=== PATIENT | female | born 1975 | race Caucasian/White ===

== ENCOUNTER 2017-01-29 10:10 | Day surgery (SDC) | payer OTHER ==
[2017-01-26 15:34] VITALS: BMI 25.2
--- NOTE | 2017-01-29 06:14 | HP ---
CHIEF COMPLAINT: Fluid in the right ear. HISTORY OF PRESENT ILLNESS: This patient is a 41-year-old female who was recently seen in my office complaining of having a plugged sensation in her right ear. Her symptoms have been going on since October of 2016. She has been on several courses of oral antibiotics and steroids without any improvement. At the time that the patient was seen in my office, clinical examination of the right ear revealed chronic right serous otitis media. The patient was placed on a course of Decadron dose pack and was seen back in the office approximately 2 weeks later. At that time, it was noted that there was no significant improvement in the ear and therefore it was recommended that the patient undergo a right myringotomy with insertion of a ventilation tube under either IV sedation with MAC or general anesthesia. Past medical history reveals the patient has no known allergies to medications. Her current medications include control pills and Ambien, zolpidem. Patient does not have a history of asthma or diabetes mellitus. Previous surgeries include removal of vocal cord polyps, tonsillectomy, adenoidectomy, colonoscopy. There is no history of hypertension either. Review of systems is essentially unremarkable. PHYSICAL EXAMINATION: This patient is a 41-year-old female who is alert and cooperative. HEENT EXAMINATION: The patient is normocephalic. Tympanic membrane on the left side is normal. Middle ear space is free of any fluid or infection. Examination of the patient's right ear reveals the tympanic membrane is dull with a definite evidence of fluid in the right middle ear space. Pupils are equal, round and react to light and accommodation. Extraocular movements within normal limits. Intranasal examination reveals moderate to severe septal deviation with compensatory hypertrophy of the inferior turbinates and a moderate amount of mucus on the mucous membranes and draining down the posterior pharynx. Cranial nerves 2 through 12 and the remainder of the head and neck exam are all within normal limits. CHEST/CARDIOVASCULAR: Both lung willard are clear to percussion and auscultation. There is no evidence of any murmurs, S3s or S4s. Peripheral pulses are bilaterally symmetrical. ABDOMEN: There is no evidence of any masses, megaly or tenderness. The abdomen is soft. Skin is unremarkable. Musculoskeletal and neurological are within normal limits. PELVIC/RECTAL EXAM: The pelvic rectal exam is deferred at this time because the patient has this done on a regular basis at her family physician's office. The remainder of the physical exam is essentially within normal limits. IMPRESSION: Chronic right serous otitis media. PLAN: The patient is scheduled to undergo a right myringotomy with insertion of a ventilation tube under either IV sedation with MAC or general anesthesia depending upon the anesthesia department's preference. ATTENTION RNS IN THE PRESURGICAL AREA: I have not ordered any presurgical prophylactic antibiotics for this patient. If the pharmacy department sends any presurgical prophylactic antibiotics to the presurgical area for this patient that order should be canceled and the medication returned to pharmacy department and make sure that the patient's account is credited appropriately please. I have discussed the risks, benefits and alternative therapies for the above- mentioned procedure and for both sedation/analgesia as well as necessary blood product administration, if indicated, as they pertain to this patient. The patient has indicated his or her understanding and acceptance of the risks and procedures discussed. MONIE
[~2017-01-29 10:10] MED LIST: HYDROmorphone 1 MG/ML 1 ML SYRINGE IVP PRN; LACTATED RINGERS 1,000 ML IV SCH; LIDOCAINE 1% 20 ML VIAL (10MG/ML) FOR IV START INTRADERMA PRN; ONDANSETRON 4 MG/2 ML VIAL IVP PRN
[2017-01-29] MEDS ORDERED: LACTATED RINGERS 1,000 ML IV ONE (11:00)
[2017-01-29] MEDS ORDERED: DEXAMETHASONE SOD PHOS (MDV) 100 MG/10 ML VIAL IVP ONE (11:16)
[2017-01-29] MEDS ORDERED: MIDAZOLAM 2 MG/2 ML VIAL ONE (11:42)
[2017-01-29] MEDS ORDERED: LIDOCAINE 1% INJ 10MG/ML (20 ML MDV) ONE (11:42)
[2017-01-29] MEDS ORDERED: fentaNYL (PF) 50 MCG/ML 2 ML AMP ONE (11:42)
[2017-01-29] MEDS ORDERED: PROPOFOL 10 MG/ML 20 ML VIAL IV ONE (11:42)
[2017-01-29] MEDS ORDERED: CIPROFLOXACIN-DEXAMETH 0.3-0.1% DROPS 7.5 ML BTL BOTH EARS ONE (11:53)
[2017-01-29 12:12] VITALS: TEMP 98.4
[2017-01-29 13:00] VITALS: PULSE 47
[2017-01-29 13:24] VITALS: BP 11/71; RESP 20
--- NOTE | 2017-01-29 18:37 | OP ---
DATE OF SURGERY: 01/19/2017 PREOPERATIVE DIAGNOSIS: Chronic right serous otitis media. POSTOPERATIVE DIAGNOSIS: Chronic right serous otitis media. ANESTHESIA: General. OPERATIVE PROCEDURE: Right myringotomy with insertion of a Aurora titanium ventilation tube. OPERATING SURGEON: Dr. Espinoza. COMPLICATIONS: None. OPERATIVE PROCEDURE: The patient was placed on the operating table in supine position. After uneventful induction and LMA intubation, satisfactory general anesthesia was attained. Next the patient's right ear was draped in the usual and customary fashion. Following this, using the Zeiss operating microscope and a #3 aural speculum, the right external auditory canal was cleansed of all wax and debris. The right tympanic membrane was inspected and appeared to be dull with fluid in the right middle ear space. Therefore, using the myringotomy knife , an incision was made in the anterior/inferior quadrant of the right tympanic membrane. The right middle ear space was suctioned free of all fluid. Next a Aurora titanium ventilation tube was inserted through the previously made myringotomy incision which had been made in the anterior/inferior quadrant of the right tympanic membrane with the myringotomy knife. At this point the procedure was terminated. There were no intraoperative complications. The patient tolerated the procedure well and was returned to the recovery room in satisfactory condition. MONIE
== END 2017-01-29 13:26 | disposition home or self-care (01) ==
LOC: OR 10:10
PROVIDERS: ATTEND Otolaryngology
DX: H65.21 Chronic serous otitis media, right ear (principal); Z79.3 Long term (current) use of hormonal contraceptives; Z79.899 Other long term (current) drug therapy
CPT/HCPCS: 81025; 69436; J2250; J2405; J2001; J3010; J1100; J2704

== ENCOUNTER → 2017-03-23 | Outpatient (CLI) | payer OTHER ==
--- NOTE | 2017-03-24 06:57 | MM ---
Reason for exam: screening (asymptomatic). Baseline mammogram. History: Patient is nulliparous. Family history of breast cancer in maternal grandmother at age 70. Taking hormonal contraceptives for 24 years beginning at age 17. Physical Findings: Nurse did not find any significant physical abnormalities on exam. MG 3D Screening Mammo W/Cad Bilateral CC and MLO view(s) were taken. The breast tissue is extremely dense which could obscure a lesion on mammography. There is no discrete abnormality. There are scattered rounded densities bilaterally. These results were verbally communicated with the patient and result sheet given to the patient on 03/23/17. ASSESSMENT: Benign, BI-RAD 2 RECOMMENDATION: Routine screening mammogram of both breasts in 1 year.
== END | disposition home or self-care (01) ==
LOC: RADMAMWWP 15:28
PROVIDERS: ATTEND Obstetrics & Gynecology
DX: Z12.31 Encounter for screening mammogram for malignant neoplasm of breast (principal)
CPT/HCPCS: 77063; G0202

== ENCOUNTER → 2018-03-28 | Outpatient (CLI) | payer BC ==
--- NOTE | 2018-03-29 13:59 | MM ---
Reason for exam: screening (asymptomatic). Last mammogram was performed 1 year ago. History: Patient is nulliparous. Family history of breast cancer in maternal grandmother at age 70. Took hormonal contraceptives for 24 years beginning at age 17. Physical Findings: A clinical breast exam by your physician is recommended on an annual basis and results should be correlated with mammographic findings. MG Screening Mammo w CAD Bilateral CC and MLO view(s) were taken. Prior study comparison: March 23, 2017, bilateral MG 3d screening mammo w/cad. The breast tissue is heterogeneously dense. This may lower the sensitivity of mammography. No significant changes when compared with prior studies. ASSESSMENT: Benign, BI-RAD 2 RECOMMENDATION: Routine screening mammogram of both breasts in 1 year.
== END | disposition home or self-care (01) ==
LOC: RADMAMWWP 14:54
PROVIDERS: ATTEND Obstetrics & Gynecology
DX: Z12.31 Encounter for screening mammogram for malignant neoplasm of breast (principal); Z80.3 Family history of malignant neoplasm of breast
CPT/HCPCS: 77067

== ENCOUNTER → 2019-05-03 | Outpatient (CLI) | payer BC ==
--- NOTE | 2019-05-05 11:53 | MM ---
Reason for exam: screening (asymptomatic). Last mammogram was performed 1 year and 1 month ago. History: Patient is nulliparous. Family history of breast cancer in maternal grandmother at age 70. Took hormonal contraceptives for 24 years beginning at age 17. Physical Findings: A clinical breast exam by your physician is recommended on an annual basis and results should be correlated with mammographic findings. MG Screening Mammo w CAD Bilateral CC and MLO view(s) were taken. Prior study comparison: March 28, 2018, bilateral MG screening mammo w CAD. March 23, 2017, bilateral MG 3d screening mammo w/cad. The breast tissue is heterogeneously dense. This may lower the sensitivity of mammography. There is no discrete abnormality. No significant changes when compared with prior studies. ASSESSMENT: Benign, BI-RAD 2 RECOMMENDATION: Routine screening mammogram of both breasts in 1 year.
== END | disposition home or self-care (01) ==
LOC: RADMAMWWP 07:21
PROVIDERS: ATTEND Obstetrics & Gynecology
DX: Z80.3 Family history of malignant neoplasm of breast (principal)
CPT/HCPCS: 77067

== ENCOUNTER → 2020-08-06 | Outpatient (CLI) | payer BC ==
--- NOTE | 2020-08-09 12:16 | MM ---
Reason for exam: screening (asymptomatic). Last mammogram was performed 1 year and 3 months ago. History: Patient is nulliparous. Family history of breast cancer in maternal grandmother at age 70. Took hormonal contraceptives for 24 years beginning at age 17. Taking progesterone beginning at age 41. Physical Findings: A clinical breast exam by your physician is recommended on an annual basis and results should be correlated with mammographic findings. MG Screening Mammo w CAD Bilateral CC and MLO view(s) were taken. Prior study comparison: May 03, 2019, bilateral MG screening mammo w CAD. March 28, 2018, bilateral MG screening mammo w CAD. The breast tissue is heterogeneously dense. This may lower the sensitivity of mammography. There is chronic nodularity bilaterally. There is no discrete abnormality. ASSESSMENT: Benign, BI-RAD 2 RECOMMENDATION: Routine screening mammogram of both breasts in 1 year.
== END | disposition home or self-care (01) ==
LOC: RADMAMWWP 08:03
PROVIDERS: ATTEND Obstetrics & Gynecology
DX: Z12.31 Encounter for screening mammogram for malignant neoplasm of breast (principal)
CPT/HCPCS: 77067

== ENCOUNTER → 2021-08-14 | Outpatient (CLI) | payer BC ==
--- NOTE | 2021-08-15 14:32 | MM ---
Reason for exam: screening (asymptomatic). Last mammogram was performed 1 year ago. History: Patient is nulliparous. Family history of breast cancer in maternal grandmother at age 70. Took hormonal contraceptives for 24 years beginning at age 17. Taking progesterone beginning at age 41. Physical Findings: A clinical breast exam by your physician is recommended on an annual basis and results should be correlated with mammographic findings. MG Screening Mammo w CAD Bilateral CC and MLO view(s) were taken. Prior study comparison: August 06, 2020, bilateral MG screening mammo w CAD. May 03, 2019, bilateral MG screening mammo w CAD. The breast tissue is heterogeneously dense. This may lower the sensitivity of mammography. There is no discrete abnormality. No significant changes when compared with prior studies. ASSESSMENT: Negative, BI-RAD 1 RECOMMENDATION: Routine screening mammogram of both breasts in 1 year.
== END | disposition home or self-care (01) ==
LOC: RADMAMWWP 08:23
PROVIDERS: ATTEND Obstetrics & Gynecology
DX: Z12.31 Encounter for screening mammogram for malignant neoplasm of breast (principal); Z80.3 Family history of malignant neoplasm of breast
CPT/HCPCS: 77067

== ENCOUNTER → 2022-01-29 | Outpatient (CLI) | payer BC ==
--- NOTE | 2022-01-29 14:53 | FL ---
EXAMINATION: Double contrast upper GI examination. DATE: 01/29/2022 CLINICAL INDICATION: 46-year-old female K21.9, gastroesophageal reflux disease without esophagitis. A bdominal pain and acid reflux. COMPARISON: None Total Fluoroscopy Time: 2 minutes 7 seconds 47 images obtained. FINDINGS: There is an episode of deep penetration with faint coating of the vocal folds noted. This does not el icit any cough reflex. Hypopharyngeal anatomy is preserved. The thoracic esophagus has a normal course, caliber, motility and mucosa. There is a small sliding hiatal hernia demonstrated. Upon Valsalva and rolling maneuver, severe gastroesophageal reflux is seen into the neck. The stomach and duodenum are free of any persistent filling defect and demonstrate a normal mucosal p attern. IMPRESSION: 1. Incidental deep penetration with faint coating of the vocal folds. No cough reflex was elicited. T his may have been an isolated and incidental finding. Correlate clinically as to the need for further assessment with speech pathology. 2. Small sliding hiatal hernia with severe gastroesophageal reflux seen into the neck. 3. No stricture or esophagitis. 4. No ulcer or filling defect identified within the stomach or duodenum.
--- NOTE | 2022-01-29 15:36 | US ---
EXAMINATION TYPE: US abdomen complete DATE OF EXAM: 01/29/2022 COMPARISON: NONE CLINICAL HISTORY: 46-year-old female K21.9 GASTRO-ESOPHAGEAL REFLUX DISEASE WITHOUT ESOPHAGITIS. Abdo khushi Pain. TECHNIQUE: Multiple sonographic images of the abdomen are obtained. FINDINGS: EXAM MEASUREMENTS: Liver Length: 11.9 cm Gallbladder Wall: 0.2 cm CBD: 0.3 cm Spleen: 9.4 cm Right Kidney: 10.5 x 5.0 x 4.7 cm Left Kidney: 9.5 x 5.3 x 4.7 cm CASH POSTING REPRESENTATIVE NOTES: Exam limited by overlying bowel gas Pancreas: Obscured by bowel gas Liver: Cystic area noted measuring 1.8 x 1.3 x 1.3 cm in right lobe. There is a round, hypoechoic ma ss adjacent to gallbladder measuring 2.9 x 2.0 x 2.7 cm Gallbladder: No stones seen Evidence for sonographic Toure's sign: No CBD: Appears wnl Spleen: Appears wnl Right Kidney: Mid pole parapelvic cyst measuring 1.8 x 1.0 x 1.8 cm. No hydronephrosis. Left Kidney: Stone noted measuring 0.7 x 05 x 0.7 cm at the midpole. No hydronephrosis. Upper IVC: Appears wnl Abd Aorta: Appears wnl measuring up to 2.2 cm proximally. IMPRESSION: 1. No gallstones or biliary ductal dilatation. 2. A round, hypoechoic area measuring 2.9 cm within the liver adjacent to the gallbladder. Liver MRI to further characterize and to exclude a mass here. 3. A 7 mm nonobstructive left midpole renal calculus.
== END | disposition home or self-care (01) ==
LOC: RADUSWWP 10:32
PROVIDERS: ATTEND Family Medicine
DX: N20.0 Calculus of kidney (principal); K76.89 Other specified diseases of liver
CPT/HCPCS: 74240; 76700

== ENCOUNTER → 2022-03-06 | Outpatient (CLI) | payer BC ==
--- NOTE | 2022-03-06 08:20 | MR ---
EXAMINATION TYPE: MR liver wo/w con DATE OF EXAM: 03/06/2022 COMPARISON: Ultrasound abdomen January 29, 2022 HISTORY: Abnormal ultrasound. Liver mass. Hiatal hernia and kidney stones. CONTRAST: Standard multiplanar, multisequence MRI departmental protocol images were obtained without contrast a nd with 9 mL intravenous Gadavist gadolinium contrast. Imaging performed of the abdomen focusing on the liver. FINDINGS: Exam is suboptimal inspiration is unable to hold still. Liver: Liver remains normal in size. There is mild diffuse signal dropout consistent with mild diffus e fatty infiltration. Corresponding to ultrasound there is benign 1.3 cm round thin-walled cyst in th e anterior aspect axial image 41 series 701. Immediately adjacent to the gallbladder there is suggest ion of a oval roughly 1.9 cm mass of slight T2 hyperintensity relative to the liver fairly isointense on T1-weighted images that shows homogeneous postcontrast enhancement on initial images being fairly isodense on delayed images with preservation of central linear enhancement. No significant signal dr opout. Additional punctate 5 mm mm thin-walled cyst in the hepatic dome axial image 52. Gallbladder a ppears within normal limits. No biliary dilatation is evident. Patent nondilated portal vein is seen. There are hepatic veins draining into the IVC. No surrounding ascites. Other: Lung bases are grossly clear. The spleen and both adrenal glands appear within normal limits. No concerning renal mass or hydronephrosis seen bilaterally. Pancreas appears within normal limits. N o suspicious small or large bowel dilatation. No AAA. Small fat-containing umbilical hernia. Osseous structures are intact. IMPRESSION: There is roughly 2.0 cm Central solid enhancing liver mass confirmed. Dynamic MRI imaging findings consistent with focal nodular hyperplasia, benign etiology.
== END | disposition home or self-care (01) ==
LOC: RADMRIMAIN 06:06
PROVIDERS: ATTEND Physician Assistant Medical
DX: K21.9 Gastro-esophageal reflux disease without esophagitis (principal); K76.9 Liver disease, unspecified
CPT/HCPCS: 74183; A9585